=== PATIENT | male | born 1990 ===

== ENCOUNTER 2017-11-03 23:52 | Emergency (ER) | payer SELFPAY ==
[2017-11-04 00:38] VITALS: BMI 35.4
[2017-11-04 00:41] VITALS: BP 162/96; PULSE 92; RESP 18; TEMP 98.3; O2SAT 98
--- NOTE | 2017-11-04 01:07 | ED PDOC ---
HPI: CCC, URI, Sore Throat Time Seen by Provider: 11/04/17 00:00 Chief Complaint (Nursing): ENT Problem Chief Complaint (Provider): ENT Problem History Per: Patient Onset/Duration Of Symptoms: Days (x 3) Associated Symptoms: Nasal Congestion, Other (Right facial pain). denies: Fever , Vomiting, Diarrhea Additional Complaint(s): 26 years old male presents to the ED with complaints of nasal congestion associated with right facial pain onset 3 days. Patient reports his last drink was last night at 8 pm. He denies experiencing any fever, vomiting or diarrhea. PMD: non provided Past Medical History Reviewed: Historical Data, Nursing Documentation, Vital Signs Vital Signs: Last Vital Signs Temp 98.3 F 11/04/17 00:38 Pulse 92 H 11/04/17 00:38 Resp 18 11/04/17 00:38 BP 162/96 H 11/04/17 00:38 Pulse Ox 98 11/04/17 02:32 - Medical History PMH: No Chronic Diseases - Surgical History Surgical History: No Surg Hx - Family History Family History: States: Unknown Family Hx - Social History Current smoker - smoking cessation education provided: No Alcohol: Social Drugs: Denies - Home Medications Home Medications: Ambulatory Orders Medication Instructions Recorded Amoxicillin 500 mg PO BID #14 tablet 11/04/17 Sodium Chloride [[facility] 1 ml NS BID #1 spr 11/04/17 Pharmacy Saline Nasal [place] [facility] ] - Allergies Allergies/Adverse Reactions: Allergies Allergy/AdvReac Type Severity Reaction Status Date / Time No Known Allergies Allergy Verified 11/04/17 00:38 Review of Systems ROS Statement: Except As Marked, All Systems Reviewed And Found Negative Constitutional: Negative for: Fever ENT: Positive for: Nose Congestion Gastrointestinal: Negative for: Vomiting, Diarrhea Neurological: Positive for: Other (Right facial pain) Physical Exam - Reviewed Nursing Documentation Reviewed: Yes Vital Signs Reviewed: Yes - Physical Exam Appears: Positive for: Non-toxic, No Acute Distress (sounds like he is nasal congestion) Head Exam: Positive for: ATRAUMATIC, NORMOCEPHALIC Skin: Positive for: Normal Color, Warm, Dry ENT: Positive for: Pharynx Is (normal), TM Is/Are (mild fluid in R ear), Nasal Congestion, Other (Fluid discharge of right ear. Right facial Maxillary tenderness.). Negative for: Pharyngeal Erythema, Tonsillar Swelling Neck: Positive for: Normal Cardiovascular/Chest: Positive for: Regular Rate, Rhythm. Negative for: Murmur Respiratory: Positive for: Normal Breath Sounds. Negative for: Respiratory Distress Gastrointestinal/Abdominal: Positive for: Normal Exam, Soft. Negative for: Tenderness Extremity: Positive for: Normal ROM Neurologic/Psych: Positive for: Alert, Oriented. Negative for: Motor/Sensory Deficits - ECG O2 Sat by Pulse Oximetry: 98 (RA) Pulse Ox Interpretation: Normal Medical Decision Making Medical Decision Making: Time: 43 Initial Impression: Acute sinusitis. Initial Plan: --Motrin 600 mg PO 0211 Patient is stable for discharge and prescribed antibiotics and nasal spray. Scribe Attestation: Documented by Angela Urbina, acting as a scribe for Juli Garces MD Provider Scribe Attestation: All medical record entries made by the Scribe were at my direction and personally dictated by me. I have reviewed the chart and agree that the record accurately reflects my personal performance of the history, physical exam, medical decision making, and the department course for this patient. I have also personally directed, reviewed, and agree with the discharge instructions and disposition. Disposition - Clinical Impression Clinical Impression: Sinusitis - Patient ED Disposition Is Patient to be Admitted: No Counseled Patient/Family Regarding: Studies Performed, Diagnosis, Need For Followup - Disposition Referrals: [facility] [Outside] [facility] [Outside] Disposition: Routine/Home Disposition Time: 02:11 Condition: IMPROVED Additional Instructions: follow up with your primary doctor in 1-2 days return to the ED with any worsening or concerning symptoms Prescriptions: Amoxicillin 500 mg PO BID #14 tablet Sodium Chloride [[facility] [place] [facility] ] 1 ml NS BID #1 spr Instructions: Sinusitis in Adults, Sinusitis, Adult (DC) Forms: [employer] (Citizen [place]) Print Language: MOHAWK
== END 2017-11-04 02:20 | disposition home or self-care (01) ==
LOC: H.ER 23:52
DX: J01.90 Acute sinusitis, unspecified (principal)